=== PATIENT | male | born 1980 | race Caucasian/White ===

== ENCOUNTER 2018-10-13 02:55 | Emergency (ER) | payer MEDICAID ==
[~2018-10-13] VITALS: Ht 170.2 cm; Wt 80.6 kg
[2018-10-13 03:03] VITALS: Ht 170.2 cm; Wt 80.6 kg
[2018-10-13] MEDS ORDERED: HYDROmorphONE 1 MG/ML SYG IV STA (03:14)
[2018-10-13] MEDS ORDERED: ONDANSETRON 4 MG INJ IV STA (03:14)
[2018-10-13] MEDS ORDERED: HYDR-3980 PO ×2 (03:33→05:51)
[2018-10-13] MEDS ORDERED: IBUP800T48 PO (03:33)
--- NOTE | 2018-10-13 05:49 | ERD ---
ER Documentation Chief Complaint Chief Complaint L flank pain x 2 hours HPI This is a 37-year-old male had sudden onset of left flank pain onset 2 hours prior to arrival this sharp and stabbing and radiates from the left flank in the left lower quadrant. Never had this before. Denies any gross hematuria, he had nausea vomiting x1 that was nonbilious and nonbloody. No diarrhea. ROS All systems reviewed and are negative except as per history of present illness. Medications Home Meds Active Scripts Ciprofloxacin Hcl* (Ciprofloxacin Hcl*) 500 Mg Tablet, 500 MG PO BID for 5 Days, TAB Prov:LEKKOS,APOSTOLOS A. DO 10/13/18 Tamsulosin Hcl* (Flomax*) 0.4 Mg Cap.er.24h, 0.4 MG PO BID, #14 CAP Prov:LEKKOS,APOSTOLOS A. DO 10/13/18 Hydrocodone/Acetaminophen ([place] 10-325 Tablet) 1 Each Tablet, 1 TAB PO Q6H PRN for PAIN, #8 TAB Prov:LEKKOS,APOSTOLOS A. DO 10/13/18 Discontinued Scripts Ibuprofen* (Motrin*) 800 Mg Tab, 800 MG PO Q6H PRN for PAIN AND OR ELEVATED TEMP, #30 TAB Prov:LEKKOS,APOSTOLOS A. DO 10/13/18 Hydrocodone/Acetaminophen ([place] 10-325 Tablet) 1 Each Tablet, 1 TAB PO Q6H PRN for PAIN, #9 TAB Prov:LEKKOS,APOSTOLOS A. DO 10/13/18 Allergies Allergies: Coded Allergies: No Known Allergy (Unverified , 10/13/18) PMhx/Soc Medical and Surgical Hx: pt denies Medical Hx, pt denies Surgical Hx Hx Alcohol Use: No Hx Substance Use: Yes (crystal meth) Hx Tobacco Use: No Smoking Status: Never smoker FmHx Family History: No coronary disease Physical Exam Vitals Vital Signs Date Temp Pulse Resp B/P (MAP) Pulse Ox O2 O2 Flow FiO2 Time Delivery Rate 10/13/18 97.4 66 16 114/71 98 03:03 (85) Physical Exam Const: Well-developed, well-nourished Head: Atraumatic, normocephalic Eyes: Normal Conjunctiva, PERRLA, EOMI, normal sclera, no nystagmus ENT: Normal External Ears, Nose and Mouth, moist mucus membranes. Neck: Full range of motion. No meningismus, no lymphadenopathy. Resp: Clear to auscultation bilaterally, no wheezing, rhonchi, rales Cardio: Regular rate and rhythm, no murmurs, S1 S2 present Abd: Soft, non tender x 4, non distended. Normal bowel sounds, no guarding or rebound, no pulsitile abdominal masses or bruits Skin: No petechiae or rashes, no ecchymosis , no maculopapular rash Back: Mild left flank tenderness Ext: No cyanosis, or edema, FROM x 4, normal inspection, neurovascularly intact x 4 Neur: Awake and alert, STR 5/5 x 4, sensation intact x 4, no focal findings, cerebellum intact Psych: Normal Mood and Affect Result Diagram: 10/13/18 0321 10/13/18 0321 Results 24 hrs Laboratory Tests Test 10/13/18 03:21 White Blood Count 12.3 10^3/ul Red Blood Count 5.18 10^6/ul Hemoglobin 14.6 g/dl Hematocrit 44.0 % Mean Corpuscular Volume 84.9 fl Mean Corpuscular Hemoglobin 28.2 pg Mean Corpuscular Hemoglobin Concent 33.2 g/dl Red Cell Distribution Width 13.8 % Platelet Count 367 10^3/UL Mean Platelet Volume 9.8 fl Immature Granulocytes % 0.400 % Neutrophils % 72.4 % Lymphocytes % 14.3 % Monocytes % 6.8 % Eosinophils % 5.4 % Basophils % 0.7 % Nucleated Red Blood Cells % 0.0 /100WBC Immature Granulocytes # 0.050 10^3/ul Neutrophils # 8.9 10^3/ul Lymphocytes # 1.8 10^3/ul Monocytes # 0.8 10^3/ul Eosinophils # 0.7 10^3/ul Basophils # 0.1 10^3/ul Nucleated Red Blood Cells # 0.0 10^3/ul Urine Color YELLOW Urine Clarity CLEAR Urine pH 7.0 Urine Specific Critz 1.014 Urine Ketones 2+ mg/dL Urine Nitrite NEGATIVE mg/dL Urine Bilirubin NEGATIVE mg/dL Urine Urobilinogen 2+ mg/dL Urine Leukocyte Esterase NEGATIVE Anna/ul Urine Microscopic RBC > 182 /HPF Urine Microscopic WBC 3 /HPF Urine Bacteria FEW /HPF Urine Mucus FEW /HPF Urine Hemoglobin 3+ mg/dL Urine Glucose NEGATIVE mg/dL Urine Total Protein 1+ mg/dl Sodium Level 141 mmol/L Potassium Level 3.3 mmol/L Chloride Level 103 mmol/L Carbon Dioxide Level 26 mmol/L Anion Gap 12 Blood Urea Nitrogen 8 mg/dl Creatinine 0.88 mg/dl Est Glomerular Filtrat Rate mL/min > 60 mL/min Glucose Level 119 mg/dl Calcium Level 9.0 mg/dl Total Bilirubin 0.7 mg/dl Direct Bilirubin 0.00 mg/dl Indirect Bilirubin 0.7 mg/dl Aspartate Amino Transf (AST/SGOT) 23 IU/L Alanine Aminotransferase (ALT/SGPT) 21 IU/L Alkaline Phosphatase 108 IU/L Total Protein 8.2 g/dl Albumin 4.5 g/dl Globulin 3.70 g/dl Albumin/Globulin Ratio 1.21 Current Medications Medications Dose Sig/Orion Start Time Status Last (Trade) Ordered Route PRN Stop Time Admin Dose Reason Admin 1 mg ONCE STAT 10/13/18 DC 10/13/18 Hydromorphone IV 03:14 03:24 HCl 10/13/18 03:16 (Dilaudid) Ondansetron 4 mg ONCE STAT 10/13/18 DC 10/13/18 HCl (Zofran IV 03:14 03:24 Inj) 10/13/18 03:16 Procedures/MDM Patient CT scan is currently pending. The patient clinically has a kidney stone as he does have a lot of red blood cells in his urine consistent with kidney stone. His pain is controlled. His CAT scan shows a stone less than 6 mm no other severe pathology I will discharge home with Flomax pain medication and Cipro. [place] [id number] Radiology Main Line: [phone] DIAGNOSTIC IMAGING REPORT Patient: HUBERT TALBOT : 1980 Age: 37 Sex: M MR #: [id number] DOS: 10/13/18 0314 Ordering MD: ROSI PHILLIPS DO Location: E/R Room/Bed: PROCEDURE: CT ABDOMEN AND PELVIS WITHOUT INTRAVENOUS CONTRAST CLINICAL INDICATION: Abdominal pain. TECHNIQUE: Contiguous axial imaging was performed through the abdomen and pelvis without contrast. Coronal and sagittal reformatting was utilized. DICOM images are available. Lack of intravenous contrast causes limitation in evaluation of the solid organs and vasculature. Lack of oral contrast causes limitation of the gastrointestinal tract. CTDIvol: 9.1 mGy mGy. Total Exam DLP: 571.12 mGy.cm mGy-cm. This CT exam was performed using one or more of the following dose reduction techniques: Automated exposure control, adjustment of the mA and/or kV according to patient size, use of iterative reconstruction technique. COMPARISON: None. FINDINGS: VISUALIZED LUNG BASES: Mild dependent ground-glass atelectasis is noted bilaterally. VISUALIZED HEART: Normal in size. Coronary calcifications are noted. LIVER: Hypodense change along the falciform ligament is typically related to normal differences in vascular flow. SPLEEN: Unremarkable. PANCREAS: Unremarkable. GALLBLADDER: Unremarkable. ADRENAL GLANDS: Unremarkable. RIGHT KIDNEY: Unremarkable. LEFT KIDNEY: There is mild asymmetric fullness of the left renal collecting system with a 0.2 cm calculus in the bladder adjacent to the left ureteral vesicle junction. ADENOPATHY: None. VASCULATURE: Unremarkable for this non-angiographic study. GI TRACT: There is no bowel dilatation to suggest obstruction. No inflammatory changes of the bowel are appreciated. APPENDIX: Not identified. PELVIC STRUCTURES: Very small fat containing umbilical hernia is noted. OTHER SOFT TISSUES: Unremarkable. OSSEOUS STRUCTURES: Unremarkable. IMPRESSION: 1. 0.2 cm calculus is present within the bladder adjacent to the left ureteral vesicle junction with mild asymmetric fullness of the left renal collecting system. RPTAT:HGST Isaias Bowman Physician Date Time Electronically viewed and signed by Isaias Bowman, Physician on 10/13/2018 05:55 GT/ CC: ROSI PHILLIPS DO [id number] Departure Diagnosis: Primary Impression: Kidney stone Condition: Stable Patient Instructions: Endometriosis, Pelvic Pain, Unknown Cause ROSI PHILLIPS DO Oct 13, 2018 05:49
[2018-10-13] MEDS ORDERED: TAMS-14 PO (05:51)
[2018-10-13] MEDS ORDERED: CIPR500T4 PO (05:51)
[2018-10-13 06:26] VITALS: BP 106/64; PULSE 58; RESP 16
== END 2018-10-13 06:29 | disposition home or self-care (01) ==
LOC: E/R 02:55
DX: N20.0 Calculus of kidney (principal)
CPT/HCPCS: 36415; 74176; 80053; 81001; 85025; 96374; 96375; J1170; J2405; Z7502